=== PATIENT | female | born 1990 | race Two or more races ===

== ENCOUNTER 2024-11-01 16:52 | Emergency (ER) | payer OTHER ==
[~2024-11-01] VITALS: Ht 167.6 cm; Wt 96.2 kg
[2024-11-01 16:59] VITALS: BP 139/60; TEMP 98.3
[2024-11-01] MEDS ORDERED: KETO10TA2 PO (18:37)
[2024-11-01] MEDS ORDERED: CYCL5TAB PO (18:37)
[2024-11-01 18:48] VITALS: O2SAT 99
== END 2024-11-01 18:48 | disposition home or self-care (01) ==
LOC: ER 16:52
DX: S50.02XA Contusion of left elbow, initial encounter (principal); W22.8XXA Striking against or struck by other objects, initial encounter; Y93.89 Activity, other specified; Y92.89 Other specified places as the place of occurrence of the external cause; Y99.8 Other external cause status
CPT/HCPCS: 73030-TC; 73080-TC; 93971-TC

== ENCOUNTER 2024-12-11 21:10 | Emergency (ER) | payer OTHER ==
[~2024-12-11] VITALS: Ht 165.1 cm; Wt 83.9 kg
[~2024-12-11 21:10] MED LIST: CYCL5TAB PO; KETO10TA2 PO
[2024-12-11] MEDS ORDERED: IBUPROFEN 600 MG TABLET ONE (21:39)
[2024-12-11] MEDS ORDERED: ACETAMINOPHEN ES 500 MG TABLET ONE (21:39)
[2024-12-11] MEDS: IBUPROFEN 600 MG TABLET PO ONE (21:40)
[2024-12-11] MEDS: ACETAMINOPHEN ES 500 MG TABLET PO ONE (21:40)
[2024-12-11] MEDS ORDERED: ACET-2030 PO (21:57)
[2024-12-11] MEDS ORDERED: IBUP-1490 PO (21:57)
[2024-12-11 22:17] VITALS: BP 141/86; TEMP 98.2; O2SAT 98
== END 2024-12-11 22:17 | disposition home or self-care (01) ==
LOC: ER 21:12
DX: M25.561 Pain in right knee (principal); M25.562 Pain in left knee; W01.0XXA Fall on same level from slipping, tripping and stumbling without subsequent striking against object, initial encounter; Y93.89 Activity, other specified; Y92.89 Other specified places as the place of occurrence of the external cause; Y99.9 Unspecified external cause status
CPT/HCPCS: 73564-TC